=== PATIENT | female | born 1995 | race Caucasian/White ===

== ENCOUNTER 2022-05-28 19:46 | Emergency (ER) | payer OTHER, SELFPAY ==
[2022-05-28 19:56] VITALS: BP 144/96; PULSE 91; RESP 18; TEMP 36.9; O2SAT 96; BMI 20.8
--- NOTE | 2022-05-28 20:19 | ED_ITS ---
HPI - Extremity Injury (Lower) General Chief Complaint: Extremity Pain/Injury, Lower Stated Complaint: Left leg injury Time Seen by Provider: 05/28/22 19:48 History of Present Illness HPI Narrative: This 26-year-old female was at work where she received an injury to her left upper leg. She states that she was squatting down in a full flexion of her knee knees when she felt a pop and had sudden pain on the lateral aspect of the mid thigh of the left leg. She was able to get up and ambulate and did ambulate into the emergency department. She reports significant pain in doing so. Prior to this she has been in good health. She does not report any other injury. Related Data Home Medications Medication Instructions Recorded Confirmed dextroamphetamine-amphetamine 10 05/28/22 mg tablet dextroamphetamine-amphetamine 15 05/28/22 mg tablet dextroamphetamine-amphetamine ER PO 05/28/22 20 mg 24hr capsule,extend release Previous Rx's Medication Instructions Recorded Crutches- Adult #1 ea 05/28/22 Allergies Allergy/AdvReac Type Severity Reaction Status Date / Time No Known Drug Allergies Allergy Verified 05/28/22 19:59 Review of Systems Status of ROS: Reports: 10 or more systems reviewed and unremarkable except as noted in History and below Narrative: Constitutional: No fevers, no weight gain or loss. Eyes: No discharge. No vision changes. HENT: No congestion, no sore throat, no ear pain. Cardiovascular: No chest pain, no palpitations. Respiratory: No shortness of breath, no wheezes, no cough. Gastrointestinal: No abdominal pain, no vomiting, no diarrhea. Genitourinary: No dysuria, no hematuria. Musculoskeletal: Left upper leg pain as described above. Skin: No rashes, no pruritis. Neurological: No dizziness, weakness, sensory change, speech change. Endo/Heme/Allergies: No bruising or bleeding. No polydipsia. Pysch: no suicidality, no anxiety, no insomnia. All other systems reviewed and are negative. PFSH PFS Social History Smoking Status: Former smoker Do you use any of these nicotine containing products: None How often do you have a drink containing alcohol: never AUDIT-C Alcohol total score: 0 Non-prescribed substance use: denies use Exam Narrative: Exam Narrative: Constitutional: Well-developed, well-nourished, no acute distress. HEENT: Normocephalic, atraumatic. Neck: Normal range of motion. Nontender. Supple. Heart: Intact distal pulses. Lungs: No chest discomfort. No wheezes, rhonchi, or rales. Abdomen: Nontender. Back: Normal range of motion. Extremities: Diffuse pain in the lateral aspect of the left upper leg. There is no palpable deformity or step-off. She has significant pain with movement. She is able to ambulate. Skin: Intact. No rash. Warm. No erythema or pallor. Neurologic: No altered sensation. No weakness. Alert and oriented. Psychiatric: No suicidality. No anxiety or depression. No insomnia. Nursing notes and vitals signs are reviewed. Const: Vital Signs, click to edit/add: Vital Signs - 24 hr 05/28/22 19:56 Temperature 98.5 F Pulse Rate [Left P ulse Oximeter] 91 Respiratory Rate 18 Blood Pressure [Le ft Upper Arm] 144/96 H Pulse Oximetry 96 Oxygen Delivery Me thod Room Air Course Vital Signs Vital signs: Initial Vital Signs Temperature 98.5 F 05/28/22 19:56 Temperature Source Temporal Artery Scan 05/28/22 19:56 Pulse Rate 91 05/28/22 19:56 Pulse Rhythm 05/28/22 19:56 Respiratory Rate 18 05/28/22 19:56 Blood Pressure 144/96 H 05/28/22 19:56 Blood Pressure Mean 112 05/28/22 19:56 Blood Pressure Position Sitting 05/28/22 19:56 Pulse Oximetry 96 05/28/22 19:56 Oxygen Delivery Method 05/28/22 19:56 Vital Signs Temperature 98.5 F 05/28/22 19:56 Pulse Rate 91 05/28/22 19:56 Respiratory Rate 18 05/28/22 19:56 Blood Pressure 144/96 H 05/28/22 19:56 Pulse Oximetry 96 05/28/22 19:56 Oxygen Delivery Method 05/28/22 19:56 Temperature 98.5 F 05/28/22 19:56 Pulse Rate 91 05/28/22 19:56 Respiratory Rate 18 05/28/22 19:56 Blood Pressure 144/96 H 05/28/22 19:56 Pulse Oximetry 96 05/28/22 19:56 Oxygen Delivery Method 05/28/22 19:56 MDM - Extremity Injury (Lower) MDM Narrative Medical decision making narrative: This patient had an injury to her left leg while at work as described above. The mechanism of injury is not such that requires x-ray or CT imaging at this time. If not improving or worsening symptoms happen, it may be necessary to do an MRI and follow-up with orthopedic clinic. For now the patient received crutches and a prescription for Toradol. A return to work note is also provided where she should avoid ambulating on that left leg for few days and increase activity as tolerated. necessary Discharge Plan Discharge Clinical Impression: Leg injury Patient Disposition: Home, Self-Care Condition: Stable Instructions: Crutch Instructions (ED) Additional Instructions: Use crutches as needed. Take medication as indicated and needed. Follow up wit h orthopedic clinic if not improving or worsening symptoms happen. Prescriptions: New (DME) Crutches- Adult Misc See Rx Instructions .ROUTE .MEDSUPPLY Qty: 1 0RF Rx Instructions: As directed No Action dextroamphetamine-amphetamine 10 mg tablet dextroamphetamine-amphetamine 20 mg capsule,extended release 24hr PO dextroamphetamine-amphetamine 15 mg tablet Stand Alone Forms: My[facility] Info Instructions
== END 2022-05-28 20:52 | disposition home or self-care (01) ==
LOC: ED 20:39
PROVIDERS: Emergency Provider Emergency Medicine Emergency Medical Services; PCP Physician Assistant
DX: M79.652 Pain in left thigh (principal); X50.0XXA Overexertion from strenuous movement or load, initial encounter
CPT/HCPCS: 99282; 99284